=== PATIENT | male | born 1945 | race Caucasian/White ===

== ENCOUNTER 2017-10-28 13:05 | Emergency (ER) | payer OTHER ==
[2017-10-28] MEDS ORDERED: BENZONATATE 100 MG CAP PO ONE (13:51)
--- NOTE | 2017-10-28 15:17 | RAD REPORT ---
EXAM DESCRIPTION: Marty Gray (2 Views)10/28/2017 2:39 pm CLINICAL HISTORY: Cough COMPARISON: None FINDINGS: The lungs appear clear of acute infiltrate. The heart is normal size IMPRESSION: No acute abnormalities displayed
--- NOTE | 2017-10-28 15:30 | ER ---
Nurse's Notes [facility] Name: Rolando Hua Age: 72 yrs Sex: Male : 1945 Arrival Date: 10/28/2017 Time: 13:09 Bed 9 Private MD: out of town, doctor Diagnosis: Cough;Constipation Presentation: 10/28 13:27 Presenting complaint: Patient states: " My made me come up here. We are visiting from [place] and I haven't had a BM in about 4 days. I also have had a cough since we've been here." Pt reports that cough is not productive, denies feve, N/V. Transition of care: patient was not received from another setting of care. Onset of symptoms was October 28, 2017. Risk Assessment: Do you want to hurt yourself or someone else? Patient reports no desire to harm self or others. Initial Sepsis Screen: Does the patient meet any 2 criteria? No. Patient's initial sepsis screen is negative. Does the patient have a suspected source of infection? No. Patient's initial sepsis screen is negative. Care prior to arrival: None. 13:27 Method Of Arrival: Ambulatory 13:27 Acuity: TANYA 4 ph Historical: - Allergies: 13:30 No Known Allergies; ph - Home Meds: 13:30 Crestor oral oral [Active]; lorazepam Oral [Active]; Bupropion Oral [Active]; ph - PMHx: 13:30 High Cholesterol; ph - PSHx: 13:30 Carpal Tunnel Repair; ph - Immunization history:: Adult Immunizations unknown. - Social history:: Smoking status: Patient/guardian denies using tobacco. - Ebola Screening: : No symptoms or risks identified at this time. Screenin:02 Abuse screen: Denies threats or abuse. Denies injuries from another. Nutritional aj screening: No deficits noted. Tuberculosis screening: No symptoms or risk factors identified. Fall Risk None identified. Assessment: 14:02 General: Appears in no apparent distress. comfortable, Behavior is calm, cooperative, aj appropriate for age. Pain:. Neuro: Level of Consciousness is awake, alert, obeys commands, Oriented to person, place, time, situation. Respiratory: Reports cough that is. GI: No signs and/or symptoms were reported involving the gastrointestinal system. Abdomen is flat, Abd is soft and non tender. EENT: Reports pain when swallowing. Derm: Skin is intact, is healthy with good turgor, Skin is pink, warm \\T\\ dry. normal. 15:37 Reassessment: Patient appears in no apparent distress at this time. No changes from aj previously documented assessment. Patient and/or family updated on plan of care and expected duration. Pain level reassessed. Patient is alert, oriented x 3, equal unlabored respirations, skin warm/dry/pink. Vital Signs: 13:30 BP 135 / 82; Pulse 92; Resp 18; Temp 97.9; Pulse Ox 100% on R/A; Weight 91.63 kg; ph Height 6 ft. 0 in. (182.88 cm); Pain 0/10; 13:30 Body Mass Index 27.40 (91.63 kg, 182.88 cm) ph ED Course: 13:09 Patient arrived in ED. mr 13:10 out of town, doctor is Private Physician. mr 13:28 Triage completed. ph 13:31 Arm band placed on. ph 13:36 Ely Lei RN is Primary Nurse. aj 13:40 Sarkis Zee PA is PHCP. cp 13:41 Vishnu Garcia MD is Attending Physician. cp 14:02 Patient has correct armband on for positive identification. aj 14:35 X-ray completed. Patient tolerated procedure well. Patient moved back from radiology. jw2 14:37 XRAY Chest Pa And Lat (2 Views) In Process Unspecified. EDMS 15:37 No provider procedures requiring assistance completed. Patient did not have IV access aj during this emergency room visit. Administered Medications: 13:59 Drug: Tessalon Perle 100 mg Route: PO; aj 15:38 Follow up: Response: No adverse reaction aj Outcome: 15:29 Discharge ordered by MD. cp 15:37 Discharged to home ambulatory, with family. aj 15:37 Condition: good 15:37 Discharge instructions given to patient, family, Instructed on discharge instructions, follow up and referral plans. medication usage, Demonstrated understanding of instructions, follow-up care, medications, Prescriptions given X 3. 15:39 Patient left the ED. aj Signatures: Dispatcher [employer] EDMS Ely Lei RN RN aj Rivera, Maria mr Janay Thomas RN RN Sarkis Zee PA PA Tracy Mills jw2
--- NOTE | 2017-10-28 15:30 | EDPHYS ---
Physician Documentation [facility] Name: Rolando Hua Age: 72 yrs Sex: Male : 1945 Arrival Date: 10/28/2017 Time: 13:09 Bed 9 Private MD: out of town, doctor ED Physician Vishnu Garcia HPI: 10/28 13:50 This 72 yrs old Male presents to ER via Ambulatory with complaints of Cough, cp Constipation. 13:50 The patient or guardian reports cough, that is intermittent, with no sputum. cp 13:50 Onset: The symptoms/episode began/occurred last week. Severity of symptoms: in the emergency department the symptoms are unchanged, despite home interventions. 13:50 Associated signs and symptoms: Pertinent negatives: chest pain, diarrhea, ear ache, cp fever, vomiting. Patient also c/o constipation but reports small BM yesterday. Denies abdominal pain and reports flatulence. Historical: - Allergies: 13:30 No Known Allergies; ph - Home Meds: 13:30 Crestor oral oral [Active]; lorazepam Oral [Active]; Bupropion Oral [Active]; ph - PMHx: 13:30 High Cholesterol; ph - PSHx: 13:30 Carpal Tunnel Repair; ph - Immunization history:: Adult Immunizations unknown. - Social history:: Smoking status: Patient/guardian denies using tobacco. - Ebola Screening: : No symptoms or risks identified at this time. ROS: 14:00 Constitutional: Negative for body aches, chills, fever, poor PO intake. cp 14:00 Eyes: Negative for injury, pain, redness, and discharge. cp 14:00 ENT: Positive for sinus congestion, sinus pain, sore throat, Negative for drainage from ear(s), ear pain, difficulty swallowing, difficulty handling secretions. 14:00 Neck: Negative for pain with movement, pain at rest, stiffness. 14:00 Cardiovascular: Negative for chest pain, edema. 14:00 Respiratory: Positive for cough, Negative for shortness of breath, wheezing. 14:00 Abdomen/GI: Positive for constipation, flatulence, Negative for abdominal pain, vomiting, diarrhea, abdominal distension, anorexia, black/tarry stool, rectal bleeding. 14:00 Back: Negative for radiated pain. 14:00 Skin: Negative for cellulitis, rash. 14:00 Neuro: Negative for altered mental status, headache, weakness. 14:00 All other systems are negative. Exam: 14:05 Constitutional: The patient appears in no acute distress, alert, awake, comfortable, cp non-diaphoretic, non-toxic, well developed, well nourished. 14:05 Head/Face: Normocephalic, atraumatic. cp 14:05 Eyes: Periorbital structures: appear normal, Pupils: equal, round, and reactive to light and accomodation, Conjunctiva: normal, no exudate, no injection, Sclera: no appreciated abnormality, Lids and lashes: appear normal, bilaterally. 14:05 ENT: External ear(s): are unremarkable, Ear canal(s): are normal, clear, TM's: bulging, is not appreciated, bilaterally, dullness, bilaterally, erythema, is not appreciated, bilaterally, Nose: is normal, Mouth: Lips: moist, Oral mucosa: pink and intact, moist, Posterior pharynx: is normal, airway is patent, no erythema, no exudate, Tonsils: are normal in appearance, Uvula: midline, swelling, is not appreciated, erythema, is not appreciated, exudate, is not appreciated. 14:05 Neck: ROM/movement: is normal, is supple, without pain, no range of motions limitations, no meningismus, no nuchal rigidity. 14:05 Chest/axilla: Inspection: normal, Palpation: is normal, no crepitus, no tenderness. 14:05 Cardiovascular: Rate: normal, Rhythm: regular, Edema: is not appreciated, JVD: is not appreciated. 14:05 Respiratory: the patient does not display signs of respiratory distress, Respirations: normal, no use of accessory muscles, no retractions, no splinting, no tachypnea, labored breathing, is not present, Breath sounds: bronchial sounds, that are mild, are heard diffusely, stridor, is not appreciated, + upper airway congestion. wheezing: is not appreciated. 14:05 Abdomen/GI: Exam negative for discomfort, distension, guarding, Inspection: abdomen appears normal, Palpation: abdomen is soft and non-tender, in all quadrants. 14:05 Back: pain, is absent, ROM is normal. 14:05 Musculoskeletal/extremity: Exam is negative for bony tenderness, calf tenderness, decreased range of motion, edema. 14:05 Skin: cellulitis, is not appreciated, no rash present. 14:05 Neuro: Orientation: to person, place \T\ time. Mentation: lucid, able to follow commands, Cerebellar function: is grossly normal, Motor: moves all fours, strength is normal, Sensation: is normal, Gait: is steady, at a normal pace, without difficulty. Vital Signs: 13:30 BP 135 / 82; Pulse 92; Resp 18; Temp 97.9; Pulse Ox 100% on R/A; Weight 91.63 kg; ph Height 6 ft. 0 in. (182.88 cm); Pain 0/10; 13:30 Body Mass Index 27.40 (91.63 kg, 182.88 cm) ph MDM: 13:41 Patient medically screened. cp 14:00 Differential Diagnosis: Bronchitis Influenza Otitis Media Asthma Exacerbation Viral cp Syndrome Pneumonia. 15:27 Data reviewed: vital signs, nurses notes, lab test result(s), radiologic studies, plain cp films, and as a result, I will discharge patient. 15:27 Test interpretation: by ED physician or midlevel provider: plain radiologic studies. cp Counseling: I had a detailed discussion with the patient and/or guardian regarding: the historical points, exam findings, and any diagnostic results supporting the discharge/admit diagnosis, lab results, radiology results, to return to the emergency department if symptoms worsen or persist or if there are any questions or concerns that arise at home. 10/28 13:45 Order name: Influenza Screen (a \T\ B); Complete Time: 15:23 10/28 15:23 Interpretation: Reviewed. 10/28 13:45 Order name: Strep; Complete Time: 15:23 10/28 13:45 Order name: XRAY Chest Pa And Lat (2 Views); Complete Time: 15:23 10/28 15:23 Interpretation: Report reviewed. 10/28 14:17 Order name: Throat Culture EDMS Administered Medications: 13:59 Drug: Tessalon Perle 100 mg Route: PO; aj 15:38 Follow up: Response: No adverse reaction aj Disposition: 10/29 14:54 Co-signature as Attending Physician, Vishnu Garcia MD. Disposition: 10/28/17 15:29 Discharged to Home. Impression: Cough, Constipation. - Condition is Stable. - Discharge Instructions: Constipation, Adult, Cool Mist Vaporizers, Cough, Adult. - Prescriptions for Tessalon Perles 100 mg Oral Capsule - take 1 capsule by ORAL route every 8 hours As needed; 15 capsule. Prednisone 20 mg Oral Tablet - take 2 tablet by ORAL route once daily for 5 days; 10 tablet. Albuterol Sulfate 90 mcg/actuation - inhale 1-2 puff by INHALATION route every 4-6 hours; 1 Inhaler. - Medication Reconciliation Form, Thank You Letter, Antibiotic Education, Prescription Opioid Use form. - Follow up: Private Physician; When: once returned home; Reason: if symptoms continue. Signatures: Dispatcher [employer] EDEly Jovel RN RN aj Hall, Patricia, RN RN ph Sarkis Zee PA PA Vishnu Haas MD MD gs Corrections: (The following items were deleted from the chart) 10/28 15:30 15:29 10/28/2017 15:29 Discharged to Home. Impression: Cough. Condition is Stable. cp Forms are Medication Reconciliation Form, Thank You Letter, Antibiotic Education, Prescription Opioid Use. Follow up: Private Physician; When: once returned home; Reason: if symptoms continue. cp 15:39 15:30 10/28/2017 15:29 Discharged to Home. Impression: Cough; Constipation. Condition aj is Stable. Discharge Instructions: Cough, Adult, Constipation, Adult. Prescriptions for Tessalon Perles 100 mg Oral Capsule - take 1 capsule by ORAL route every 8 hours As needed; 15 capsule, Prednisone 20 mg Oral Tablet - take 2 tablet by ORAL route once daily for 5 days; 10 tablet, Albuterol Sulfate 90 mcg/actuation - inhale 1-2 puff by INHALATION route every 4-6 hours; 1 Inhaler. and Forms are Medication Reconciliation Form, Thank You Letter, Antibiotic Education, Prescription Opioid Use. Follow up: Private Physician; When: once returned home; Reason: if symptoms continue. cp
== END 2017-10-28 15:39 | disposition home or self-care (01) ==
LOC: ER 13:05
DX: K59.00 Constipation, unspecified (principal); E78.00 Pure hypercholesterolemia, unspecified
CPT/HCPCS: 71046; 87070; 87081; 87804; 99283